=== PATIENT | male | born 2000 | race Caucasian/White ===

== ENCOUNTER 2019-04-26 13:35 | Emergency (ER) | payer OTHER ==
[2019-04-26 13:44] VITALS: RESP 20; TEMP 98.1
--- NOTE | 2019-04-26 14:31 | XR ---
EXAMINATION TYPE: XR knee complete RT DATE OF EXAM: 04/26/2019 COMPARISON: NONE HISTORY: Knee pain TECHNIQUE: 3 views FINDINGS: I see no fracture nor dislocation. Joint spaces are normal. There is no sign of joint effus ion. Soft tissues appear normal. IMPRESSION: Negative right knee exam.
--- NOTE | 2019-04-26 14:35 | ED ---
Lower Extremity Injury HPI - General Chief Complaint: Extremity Injury, Lower Stated Complaint: RT Knee injury-[facility] Time Seen by Provider: 04/26/19 13:51 Source: patient Mode of arrival: ambulatory Limitations: no limitations - History of Present Illness Initial Comments: 18yo male presenting to the ER for cc of right knee pain x 1 day. Patient states while running at work to go to an alarm he states that he felt a pop in the right anterior knee. Patient states he has been able to weight-bear and ambulate since however there is tenderness over the anterior knee especially with bending. Patient states he is able to fully extend and bend the knee however this creates discomfort. Patient denies a falls or direct trauma patient denies any injury to the ankle or hip. Patient denies any other complaints denies numbness tingling or loss of sensation, coolness or pallor. Patient denies noting any significant swelling or redness. Remaining review of system negative patient states she has had a previous right knee injury in the past - Related Data Home Medications Medication Instructions Recorded Confirmed No Known Home Medications 01/19/15 01/19/15 Allergies Allergy/AdvReac Type Severity Reaction Status Date / Time No Known Allergies Allergy Verified 04/26/19 13:44 Review of Systems ROS Statement: Those systems with pertinent positive or pertinent negative responses have been documented in the HPI. ROS Other: All systems not noted in ROS Statement are negative. Past Medical History Past Medical History: No Reported History History of Any Multi-Drug Resistant Organisms: None Reported Past Surgical History: Tonsillectomy Past Psychological History: No Psychological Hx Reported Smoking Status: Never smoker Past Alcohol Use History: None Reported Past Drug Use History: None Reported General Exam - General Exam Comments Initial Comments: General: The patient is awake and alert, in no distress Eye: + 3 mm pupils are equal, round and reactive to light, extra-ocular movements are intact. No nystagmus. There is normal conjunctiva bilaterally. No signs of icterus. Ears, nose, mouth and throat: There are moist mucous membranes and no oral lesions. Neck: The neck is supple, there is no tenderness or JVD. Cardiovascular: There is a regular rate and rhythm. No murmur, rub or gallop is appreciated. Respiratory: Lungs are clear to auscultation, respirations are non-labored, breath sounds are equal. No wheezes, stridor, rales, or rhonchi. Gastrointestinal: Soft, non-distended, non-tender abdomen without masses or organomegaly noted. There is no rebound or guarding present. Musculoskeletal: Inspection of the knees bilaterally patient is able to flex extend fully of the knees bilaterally complaint discomfort the right knee anteriorly. Extensor mechanism intact. No apparent deficit superior inferior to the knee joint. No ankle pain. +2 dorsalis pedis pulses equal comparison bilaterally sensation intact rectal distal to injury site Neurological: A&O x 3. CN II-XII intact grossly, There are no obvious motor or sensory deficits. Coordination appears grossly intact. Speech is normal. Skin: Skin is warm and dry and no rashes or lesions are noted. Psychiatric: Cooperative, appropriate mood & affect, normal judgment. Limitations: no limitations Course Vital Signs 04/26/19 04/26/19 13:41 14:58 Temperature 98.1 F 98.1 F Pulse Rate 84 82 Respiratory 20 20 Rate Blood Pressure 131/80 128/78 O2 Sat by Pulse 98 98 Oximetry Medical Decision Making - Medical Decision Making 18yo no male presenting for right knee pain occurred while running. Extensor mechanism intact. Neurovascularly intact. Patient able to range the knee. There is no signs of a septic joint. X-ray revealed no osseous injury cannot rule out ligamentous injury. A tendon injury. At this time patient is placed in a knee immobilizer and given instruction to follow-up with primary care if symptoms are persistent within the next week and recommended follow-up with orthopedic surgery patient verbalized understanding and was discharged appearing well Disposition Clinical Impression: Right knee pain, Right knee sprain Disposition: HOME SELF-CARE Condition: Good Instructions (If sedation given, give patient instructions): Knee Sprain (ED) Additional Instructions: Please use medication as discussed. Please follow-up with family doctor in the next 2 days. Please return to emergency room if the symptoms increase or worsen or for any other concerns. Is patient prescribed a controlled substance at d/c from ED?: No Referrals: Soraya Medina MD [Primary Care Provider] - 1-2 days Time of Disposition: 14:34
[2019-04-26 14:59] VITALS: BP 128/78; PULSE 82
== END 2019-04-26 14:58 | disposition home or self-care (01) ==
LOC: EC 13:35
DX: S83.91XA Sprain of unspecified site of right knee, initial encounter (principal); X58.XXXA Exposure to other specified factors, initial encounter; Y93.02 Activity, running; Y92.69 Other specified industrial and construction area as the place of occurrence of the external cause; Y99.0 Civilian activity done for income or pay
CPT/HCPCS: 73562; 99283; L1830

== ENCOUNTER 2022-03-23 08:06 | Emergency (ER) | payer BC, OTHER ==
[2022-03-23 08:10] VITALS: BP 120/88; PULSE 81; RESP 18; TEMP 98
[2022-03-23] MEDS ORDERED: LIDOCAINE 1% INJ 10MG/ML (5 ML VIAL-PF) SQ ONE (08:12)
[2022-03-23] MEDS ORDERED: ACET/COD 300 MG/30 MG STARTER PACK 6 TAB BTL PO STA (08:20)
--- NOTE | 2022-03-23 08:26 | ED ---
General Adult HPI - General Chief complaint: Skin/Abscess/Foreign Body Stated complaint: infection Time Seen by Provider: 03/23/22 08:11 Source: patient, family, RN notes reviewed Mode of arrival: ambulatory Limitations: no limitations - History of Present Illness Initial comments: Patient is a pleasant 21-year-old male presenting to emergency department with concern for sore/infection of his upper tailbone region. Patient has had a previously. Previously it is open up on its own and drained. Patient does have discomfort. No fever. Symptoms have worsened over the past couple of days however have been present for over a week now. - Related Data Previous Rx's Medication Instructions Recorded Cephalexin [Keflex] 500 mg PO QID #40 cap 03/23/22 Allergies Allergy/AdvReac Type Severity Reaction Status Date / Time No Known Allergies Allergy Verified 03/23/22 08:07 Review of Systems ROS Statement: Those systems with pertinent positive or pertinent negative responses have been documented in the HPI. ROS Other: All systems not noted in ROS Statement are negative. Constitutional: Denies: fever Eyes: Denies: eye pain ENT: Denies: ear pain Skin: Reports: as per HPI Past Medical History Past Medical History: No Reported History History of Any Multi-Drug Resistant Organisms: None Reported Past Surgical History: Tonsillectomy Past Psychological History: No Psychological Hx Reported Smoking Status: Never smoker Past Alcohol Use History: None Reported Past Drug Use History: Marijuana General Exam Limitations: no limitations General appearance: alert, in no apparent distress Head exam: Present: normocephalic Respiratory exam: Present: normal lung sounds bilaterally Cardiovascular Exam: Present: regular rate, normal rhythm GI/Abdominal exam: Present: soft. Absent: tenderness Extremities exam: Present: normal inspection Neurological exam: Present: alert Psychiatric exam: Present: normal affect, normal mood Skin exam: Present: other (Right pilonidal region with minimal erythema and fullness, approximately 1 x 3 cm.) Course Vital Signs 03/23/22 08:08 Temperature 98 F Pulse Rate 81 Respiratory 18 Rate Blood Pressure 120/88 O2 Sat by Pulse 97 Oximetry Medical Decision Making - Medical Decision Making Was pt. sent in by a medical professional or institution (, PA, APRON TRIMMER, urgent care, hospital, or alf...) When possible be specific @ -No Did you speak to anyone other than the patient for history (EMS, parent, family, police, friend...)? What history was obtained from this source @ -Family is present and has seen the area previously and will keep an eye on it. Did you review nursing and triage notes (agree or disagree)? Why? @ -I reviewed and agree with nursing and triage notes Were old charts reviewed (outside hosp., previous admission, EMS record, old EKG, old radiological studies, urgent care reports/EKG's, alf records)? Report findings @ -No old charts were reviewed Differential Diagnosis (chest pain, altered mental status, abdominal pain women, abdominal pain men, vaginal bleeding, weakness, fever, dyspnea, syncope, headache, dizziness, GI bleed, back pain, seizure, CVA, palpatations, mental health)? @ -Differential Fever: Pneumonia, viral URI, endocarditis, myocarditis, pericarditis, otitis, sinusitis, peritonsillar Abscess, retropharyngeal Abscess, epiglottitis, peritonitis, appendicitis, Sobeida cystitis, diverticulitis, hepatitis, colitis, UTI, PID, TOA, pyelonephritis, prostatitis, epididymitis, meningitis, encephalitis, pulmonary embolism, CVA, thyroid storm, pancreatitis, adrenal crisis, cavernous sinus thrombosis, this is not meant to be an all-inclusive list. EKG interpreted by me (3pts min.). @ - X-rays interpreted by me (1pt min.). @ -None done CT interpreted by me (1pt min.). @ -None done U/S interpreted by me (1pt. min.). @ -None done What testing was considered but not performed or refused? (CT, X-rays, U/S, labs)? Why? @ -Considered incision and drainage however informed the patient that it appears early and may not be of benefit. Patient would like to defer this at this time and is agreeable to return if it worsens. What meds were considered but not given or refused? Why? @ -None Did you discuss the management of the patient with other professionals (professionals i.e. , PA, APRON TRIMMER, lab, RT, psych nurse, social media marketing specialist, fountain clerk, teacher, chief innovation officer, immigration case worker)? Give summary @ -No Was smoking cessation discussed for >3mins.? @ -No Was critical care preformed (if so, how long)? @ -No Were there social determinants of health that impacted care today? How? (Homelessness, low income, unemployed, alcoholism, drug addiction, transportation, low edu. Level, literacy, decrease access to med. care, halfway, rehab)? @ -No Was there de-escalation of care discussed even if they declined (Discuss DNR or withdrawal of care, Hospice)? DNR status @ -No What co-morbidities impacted this encounter? (DM, HTN, Smoking, COPD, CAD, Cancer, CVA, ARF, Chemo, Hep., AIDS, mental health diagnosis, sleep apnea, morbid obesity)? @ -None Was patient admitted / discharged? Hospital course, mention meds given and route, prescriptions, significant lab abnormalities, going to OR and other pertinent info. @ -Patient offered I&D however refuses. Value of it is unclear at this time. Patient will be prescribed antibiotics and return if symptoms worsen. Undiagnosed new problem with uncertain prognosis? @ -No Drug Therapy requiring intensive monitoring for toxicity (Heparin, Nitro, Insulin, Cardizem)? @ -No Were any procedures done? @ -No Diagnosis/symptom? @ -Cellulitis Acute, or Chronic, or Acute on Chronic? @ -Acute Uncomplicated (without systemic symptoms) or Complicated (systemic symptoms)? @ -default Side effects of treatment? @ -No Exacerbation, Progression, or Severe Exacerbation? @ -No Poses a threat to life or bodily function? How? (Chest pain, USA, MD, pneumonia, PE, COPD, DKA, ARF, appy, cholecystitis, CVA, Diverticulitis, Homicidal, Suicidal, threat to staff... and all critical care pts) @ -No Disposition Clinical Impression: Cellulitis Disposition: HOME SELF-CARE Condition: Stable Instructions (If sedation given, give patient instructions): Cellulitis (ED) Additional Instructions: Please do follow-up with your primary care physician in the next day or 2 for recheck. Return for increased pain, increased swelling, increased redness, fever, worsening symptoms or other concerns. If symptoms worsen you may benefit from incision and drainage of the area. Prescription has been sent to pharmacy. Prescriptions: Cephalexin [Keflex] 500 mg PO QID #40 cap Is patient prescribed a controlled substance at d/c from ED?: No Referrals: Kevyn Reaves MD [STAFF PHYSICIAN] - 1-2 days Time of Disposition: 08:26
== END 2022-03-23 08:42 | disposition home or self-care (01) ==
LOC: EC 08:06
DX: L03.90 Cellulitis, unspecified (principal); F12.90 Cannabis use, unspecified, uncomplicated
CPT/HCPCS: 99282